=== PATIENT | female | born 1990 | race Caucasian/White ===

== ENCOUNTER 2017-08-14 17:27 | Emergency (ER) | payer OTHER, MEDICAID ==
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
[2017-08-14] MEDS ORDERED: NORCO 7.5/325 PO ONE (20:03)
[2017-08-14] MEDS ORDERED: FLEXERIL PO ONE (20:03)
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
[2017-08-14 23:42] VITALS: BP 132/77
== END 2017-08-14 23:45 | disposition home or self-care (01) ==
LOC: ED 17:27
DX: R51 Headache (principal); M54.2 Cervicalgia; R56.9 Unspecified convulsions; J45.909 Unspecified asthma, uncomplicated; Z88.1 Allergy status to other antibiotic agents; V89.2XXA Person injured in unspecified motor-vehicle accident, traffic, initial encounter; Y93.9 Activity, unspecified; Y99.9 Unspecified external cause status; Y92.410 Unspecified street and highway as the place of occurrence of the external cause
CPT/HCPCS: 72040; 81025; 99284